=== PATIENT | female | born 1990 | race Caucasian/White ===

== ENCOUNTER 2019-07-03 17:27 | Outpatient (RCR) | payer OTHER, SELFPAY | END 2019-10-01 23:59 | disposition home or self-care (01) | LOC: ANHLAB 17:27 | PROVIDERS: Visit Provider Obstetrics & Gynecology | DX: Z29.13 Encounter for prophylactic Rho(D) immune globulin (principal); O36.0930 Maternal care for other rhesus isoimmunization, third trimester, not applicable or unspecified; Z3A.00 Weeks of gestation of pregnancy not specified | CPT/HCPCS: 36415; 36430; 90384; 96372; J2790 ==

== ENCOUNTER 2019-11-01 13:18 | Outpatient (CLI) | payer OTHER, SELFPAY ==
--- NOTE | ~2019-11-01 | US_ITS ---
US breast BI complete DATE: 11/01/2019 14:20 INDICATION: Mastoiditis. Evaluate for abscess. TECHNIQUE: High-resolution ultrasound imaging of both complete breasts COMPARISON: None FINDINGS: Right breast: At 3:00 4 cm from the nipple there is a simple septated cyst measuring 3.6 x 4.4 mm. There is a thin wall, there is through transmission and posterior enhancement. There is no internal vascularity. Left breast: 2:00 3 cm from nipple: There is a 5.5 x 7.1 mm simple cyst with through transmission and posterior en hancement. 2:00 2 cm from nipple: There is a 3.8 x 4.1 mm simple cyst with through transmission and posterior en hancement, no through transmission 2:00 4 cm from nipple: There is a septated cyst measuring 4.5 x 5 mm dimension, without internal vasc ularity. 5:00 2 cm from nipple: There is a septated 3.9 x 3.2 cm cyst. No suspicious solid lesion or shadowing of either breast is evident. No abscess of either breast is e vident. IMPRESSION: BI-RADS code right 2: Benign findings Bilateral cysts Reviewed, dictated and finalized at [facility]. Reviewed, dictated and finalized at [facility].
== END 2019-11-01 13:19 | disposition home or self-care (01) ==
PROVIDERS: PCP Family Medicine; Visit Provider Student in an Organized Health Care Education/Training Program
DX: N60.02 Solitary cyst of left breast (principal); N60.01 Solitary cyst of right breast
CPT/HCPCS: 76641

== ENCOUNTER 2022-12-16 21:55 | Emergency (ER) | payer OTHER, SELFPAY ==
--- NOTE | ~2022-12-16 | XR_ITS ---
EXAM: XR knee LT min 4V DATE: 12/16/2022 22:16 HISTORY: Pt heard pop when doing lunges. L knee pain/swelling . COMPARISON: None available. FINDINGS: Normal mineralization. No fracture or dislocation. No lytic or blastic lesion. Joint space s are maintained. No erosion or periosteal change. Large volume knee joint fluid. Relative thickening of the proximal two thirds of the patellar tendon, with thinning of the distal third and mild strand ing around the borders of the tendon. IMPRESSION: No acute osseous finding the left knee. Proximal patellar tendon thickening with thinning distally, may represent either patellar tendinopathy, partial tear, or a combination of the two. Lar ge left knee joint effusion. Reviewed, dictated and finalized at [facility]. IMPRESSION: No acute osseous finding the left knee. Proximal patellar tendon th ickening with thinning distally, may represent either patellar tendinopathy, pa rtial tear, or a combination of the two. Large left knee joint effusion.
[2022-12-16 21:59] VITALS: BP 135/86; PULSE 115; RESP 18; TEMP 37.2; O2SAT 100
--- NOTE | 2022-12-16 22:23 | ED.GENADULT ---
HPI - General Adult General Chief complaint: Extremity Injury, Lower <PASTOR Cummings Last Filed: 12/17/22 02:22> Stated complaint: knee injury <PASTOR Cummings Last Filed: 12/17/22 02:22> Time Seen by Provider: 12/16/22 22:14 <PASTOR Cummings Last Filed: 12/17/22 02:22> Source: patient <PASTOR Cummings Last Filed: 12/17/22 02:22> Mode of arrival: ambulatory <PASTOR Cummings Last Filed: 12/17/22 02:22> Limitations: no limitations <PASTOR Cummings Last Filed: 12/17/22 02:22> History of Present Illness HPI narrative: This is a 31-year-old female who presents to the ED with chief complaint of left knee pain onset just prior to arrival. Patient was doing a home workout and was doing a backwards lunge when she felt a pop in the knee with knee flexion on the left side. She reports immediate instability and feels like the knee was wobbly at that time. She reports pain throughout the knee. Reports significant swelling. Denies numbness, weakness. <PASTOR Cummings Last Filed: 12/17/22 02:22> Related Data Home medications: Home Medications Medication Instructions Recorded Confirmed acebutolol 200 mg capsule 200 mg PO DAILY 08/17/19 08/18/19 vit no.95-ferrous 1 tablet PO DAILY 08/17/19 08/18/19 fumarate 28 mg-folic acid 800 mcg tablet () <PASTOR Cummings Last Filed: 12/17/22 02:22> Allergies/adverse reactions: Allergies Allergy/AdvReac Type Severity Reaction Status Date / Time No Known Allergies Allergy Verified 12/16/22 22:21 <PASTOR Cummings Last Filed: 12/17/22 02:22> Review of Systems Review of Systems: CONSTITUTIONAL: Denies fever, chills, or sweats. SKIN: Denies rash or itching. MUSCULOSKELETAL: See HPI NEUROLOGIC: Denies headache, numbness, dizziness, or weakness. PSYCHIATRIC: Denies anxiety or depression. <Paul Zavaleta PA-C - Last Filed: 12/17/22 02:22> Exam Narrative: GENERAL: Well-appearing, well-nourished, and in no acute distress. EXTREMITIES: Left knee: Significant effusion to the left knee. No bruising. No deformity. Tender along the lateral joint line as well as the inferior pole of the patella. Anterior and posterior drawer tests are negative. Orville test negative. Jerzy test equivocal. No laxity with varus or valgus stress. Difficulty with extension against resistance on the left side when compared to right. She is able to hold the knee in extension. Right knee: Benign Difficulty with ambulation due to pain. The rest of the MSK exam is unremarkable. SKIN: Warm, dry, no rash. NEURO: Alert and oriented x3. No focal deficits. PSYCH: Normal mood and affect. <Paul Zavaleta PA-C - Last Filed: 12/17/22 02:22> Course [employer]PA[employer]IVER/PA Physician Supervision This is a was performed by both a physician and an APC. I performed all aspects of the MDM as documented w/ the following additions: 31-year-old female presenting with knee pain after doing lunges. Exam concerning for partial tear/sprain of the patellar tendon. Patient placed in a knee immobilizer given Orthopedic follow-up.All questions answered. Patient in agreement w/ disposition. <Elia Coulter MD - Last Filed: 12/19/22 08:47> Vital Signs Vital signs: Vital Signs Temperature 99 F 12/16/22 21:59 Pulse Rate 115 H 12/16/22 21:59 Respiratory Rate 18 12/16/22 21:59 Blood Pressure 135/86 12/16/22 21:59 Pulse Oximetry 100 12/16/22 21:59 Oxygen Delivery Room Air 12/16/22 21:59 Temperature 99 F 12/16/22 21:59 Pulse Rate 115 H 12/16/22 21:59 Respiratory Rate 18 12/16/22 21:59 Blood Pressure 135/86 12/16/22 21:59 Pulse Oximetry 100 12/16/22 21:59 Oxygen Delivery Room Air 12/16/22 21:59 <Paul Zavaleta PA-C - Last Filed: 12/17/22 02:22> Vital Signs Temperature 99 F 12/16/22 21:59 Pulse Rate 115 H 12/16/22 21:59 Respiratory Rate 18
== END 2022-12-16 23:28 | disposition home or self-care (01) ==
PROVIDERS: Emergency Provider Physician Assistant; PCP Family Medicine
DX: S86.812A Strain of other muscle(s) and tendon(s) at lower leg level, left leg, initial encounter (principal); X50.9XXA Other and unspecified overexertion or strenuous movements or postures, initial encounter; Y93.B9 Activity, other involving muscle strengthening exercises
CPT/HCPCS: 73564; 99283